=== PATIENT | female | born 1955 | race Caucasian/White ===

== ENCOUNTER 2018-05-18 10:24 | Emergency (ER) | payer OTHER ==
[~2018-05-18] VITALS: Ht 167.6 cm; Wt 83.9 kg
[2018-05-18] MEDS ORDERED: KEFLEX500 M1 PO (10:35)
[2018-05-18] MEDS ORDERED: NAPROSYN500 MG PO (10:35)
[2018-05-18] MEDS ORDERED: LASIX20 MG PO (10:43)
[2018-05-18] MEDS ORDERED: PRINIVIL10 MG PO (10:43)
[2018-05-18] MEDS ORDERED: OMEPRAZOLE D/R20 MG PO (10:43)
[2018-05-18] MEDS ORDERED: BUPROPION HCL150 M1 PO (10:44)
[2018-05-18] MEDS ORDERED: OXYCODONE HCL5 MG PO (10:44)
[2018-05-18] MEDS ORDERED: ASPIRIN ADULT L81 M2 PO (10:45)
[2018-05-18] MEDS ORDERED: VITAMIN C1000 M5 PO (10:45)
[2018-05-18] MEDS ORDERED: FIBER (10:45)
[2018-05-18] MEDS ORDERED: VITAMIN D5000 UNI1 PO (10:46)
[2018-05-18] MEDS ORDERED: VITAMIN E400 UNI3 PO (10:46)
[2018-05-18] MEDS ORDERED: POTASSIUM99 M5 PO (10:47)
== END 2018-05-18 11:05 | disposition home or self-care (01) ==
LOC: ED 10:24
DX: S61.011A Laceration without foreign body of right thumb without damage to nail, initial encounter (principal); R03.0 Elevated blood-pressure reading, without diagnosis of hypertension; Z23 Encounter for immunization; Z79.899 Other long term (current) drug therapy; Z79.82 Long term (current) use of aspirin; W22.8XXA Striking against or struck by other objects, initial encounter; Y93.89 Activity, other specified; Y92.89 Other specified places as the place of occurrence of the external cause; Y99.9 Unspecified external cause status